=== PATIENT | male | born 1995 | race Caucasian/White ===

== ENCOUNTER → 2022-09-11 | Emergency (ER) | payer OTHER ==
[~2022-09-11] VITALS: Ht 175.3 cm; Wt 49.9 kg
== END | disposition home or self-care (01) ==
LOC: ER 13:33
DX: R10.11 Right upper quadrant pain (principal)

== ENCOUNTER 2022-09-16 07:22 | Outpatient (CLI) | payer OTHER | END 2022-09-16 07:23 | disposition home or self-care (01) | LOC: NUCLEAR 07:22 | PROVIDERS: ATTEND Internal Medicine | DX: K81.1 Chronic cholecystitis (principal) ==

== ENCOUNTER 2023-04-20 16:54 | Emergency (ER) | payer OTHER ==
[~2023-04-20] VITALS: Ht 175.3 cm; Wt 50.3 kg
[2023-04-20] MEDS ORDERED: PEPCID AC20 MG (17:34)
[2023-04-20 19:01] LABS: HEMATOCRIT 45.4 % (39.0-48.0); HEMOGLOBIN 15.4 g/dL (13-16.00); MEAN CELL VOLUME 90.2 fL (80.0-100.00); MEAN CORPUSCULAR HEMOGLOBIN 30.5 pg (27.00-32.0); MEAN CORPUSCULAR HGB CONC 33.8 g/dl (32.0-36.0); PLATELET COUNT 269 K/uL (150-450); RED BLOOD COUNT 5.03 M/uL (4.00-6.00); RED CELL DISTRIBUTION WIDTH 12.6 % (11.5-14.5)
[2023-04-20 19:20] LABS: CALCIUM 9.5 mg/dL (8.5-10.1); CREATININE SERUM 0.85 mg/dL (0.70-1.30); GFR 106.56; POTASSIUM 3.88 mEq/L (3.5-5.1)
[2023-04-20 20:05] LABS: PH,URINE 5.5 (5.0-8.0); URINE APPEARANCE Clear; URINE BILIRRUBIN Negative (NEGATIVE); URINE BLOOD Negative; URINE COLOR Yellow; URINE GLUCOSE Negative (NEGATIVE); URINE LEUKOCYTE Negative; URINE NITRATE Negative; URINE PROTEIN Negative (NEGATIVE); URINE UROBILINOGEN 0.2 E.U./dl
[2023-04-20 20:09] LABS: URINE RBC 3.5 uL (0.0-20.8)
[2023-04-20 20:11] LABS: URINE BACTERIA 2.5 uL (0.0-1933); URINE EPITHELIAL CELLS 0.4 uL (0.0-38.8); URINE WBC 0.1 uL (0.0-23.2)
== END 2023-04-20 22:10 | disposition home or self-care (01) ==
LOC: ER 16:54
PROVIDERS: Emergency Medicine
DX: K52.89 Other specified noninfective gastroenteritis and colitis (principal)

== ENCOUNTER → 2024-03-26 | Emergency (ER) | payer OTHER ==
[~2024-03-26] VITALS: Ht 175.3 cm; Wt 55.3 kg
[~2024-03-26] MED LIST: ACETAMINOPHEN 500 MG GEL..CAP PO ONE; PEPCID AC20 MG
[2024-03-26 09:12] LABS: HEMATOCRIT 43.7 % (39.0-48.0); HEMOGLOBIN 14.6 g/dL (13-16.00); MEAN CELL VOLUME 91.9 fL (80.0-100.00); MEAN CORPUSCULAR HEMOGLOBIN 30.8 pg (27.00-32.0); MEAN CORPUSCULAR HGB CONC 33.5 g/dl (32.0-36.0); PLATELET COUNT 231 K/uL (150-450); RED BLOOD COUNT 4.75 M/uL (4.00-6.00); RED CELL DISTRIBUTION WIDTH 12.9 % (11.5-14.5)
== END | disposition home or self-care (01) ==
LOC: ER 06:04
PROVIDERS: General Practice
DX: J06.9 Acute upper respiratory infection, unspecified (principal); Z20.822 Contact with and (suspected) exposure to COVID-19

== ENCOUNTER 2025-01-19 12:30 | Emergency (ER) | payer OTHER ==
[~2025-01-19] VITALS: Ht 175.3 cm; Wt 52.2 kg
[~2025-01-19 12:30] MED LIST changes: -ACETAMINOPHEN 500 MG GEL..CAP PO ONE
[2025-01-19] MEDS ORDERED: KETOROLAC TROMETHAMINE 30 MG VIAL ONE (15:06)
[2025-01-19] MEDS ORDERED: FAMOTIDINE/PF 20 MG/2 ML VIAL ONE (15:06)
[2025-01-19] MEDS ORDERED: FAMOTIDINE/PF 20 MG/2 ML VIAL IV ONE (15:15)
[2025-01-19] MEDS ORDERED: 0.9 % SODIUM CHLORIDE 1,000 ML IV ONE (15:15)
[2025-01-19] MEDS ORDERED: KETOROLAC TROMETHAMINE 30 MG VIAL IV ONE (15:15)
[2025-01-19 15:33] LABS: BASO % 0.5 % (0.1-1.2); EOS # 0.03 (0.04-0.54); EOS % 0.4 % (0.7-7.0); LYMPH # 1.84 (1.18-3.74); LYMPH % 22.7 % (19.3-53.1); MEAN PLATELET VOLUME 10.70 fl (9.4-12.4); MONO # 0.58 (0.24-0.82); MONO % 7.1 % (4.7-12.5); NEUT # 5.62 (1.56-6.13); NEUT % 69.2 % (34.0-71.1); RED CELL DISTRIBUTION WIDTH 11.9 % (11.6-14.4)
[2025-01-19 15:54] LABS: INR 1.14
[2025-01-19 16:04] LABS: ALT/SGPT 21.0 U/L (12-78); AST/SGOT 14.0 U/L (15-37); BILIRUBIN TOTAL 0.97 mg/dL (0.3-1.2); BUN CREA RATIO 12.0 (7.0-25.0); CREATININE SERUM 0.98 mg/dL (0.70-1.30); GFR 89.21; GLOBULINA 4.0 G/DL (2.4-3.5); GLUCOSE FASTING 94.0 mg/dL (65-100); OSMOLALITY SERUM 277.0 MOSM/KG (275-295); PROSTATIC SPECIFIC ANTIGEN 1.18 NG/ML (0.010-4.00)
[2025-01-19 16:43] LABS: URINE APPEARANCE Clear; URINE BILIRRUBIN Negative (NEGATIVE); URINE BLOOD Negative; URINE COLOR Dark Yellow; URINE GLUCOSE Negative (NEGATIVE); URINE LEUKOCYTE Negative; URINE NITRATE Negative; URINE PROTEIN Trace (NEGATIVE); URINE UROBILINOGEN 1.0 E.U./dl
[2025-01-19 16:44] LABS: URINE EPITHELIAL CELLS 2.1 uL (0.0-38.8); URINE RBC 22.8 uL (0.0-20.8); URINE WBC 1.9 uL (0.0-23.2)
[2025-01-19 16:57] LABS: URINE BACTERIA 3.5 uL (0.0-1933); URINE CAST 0.29 uL (0.0-1.40); URINE KETONE 40 (NEGATIVE)
[2025-01-19] MEDS ORDERED: ANALPRAM HC 2.530 GM RECTAL (18:45)
== END 2025-01-19 19:27 | disposition home or self-care (01) ==
LOC: ER 12:30
PROVIDERS: General Practice
DX: R10.20 Pelvic and perineal pain unspecified side (principal); K21.9 Gastro-esophageal reflux disease without esophagitis; R30.0 Dysuria; K62.5 Hemorrhage of anus and rectum
CPT/HCPCS: 36415; 74177; Q9965